=== PATIENT | male | born 1985 | race African-American/Black ===

== ENCOUNTER 2020-11-22 01:33 | Emergency (ER) | payer BC ==
[~2020-11-22] VITALS: Ht 170.2 cm; Wt 77.1 kg
--- NOTE | 2020-11-22 01:36 | NUR ---
pt bibself c/o left ear pain. Pt aaox4 breathing evenly and unlabored. pt states "i thinks my ear is clogged". Pt attached to monitor and pox. MD at bedside. Pt given blanket and call light within reach
[2020-11-22] MEDS ORDERED: DOCUSATE SODIUM LIQ 100 MG/10 ML UDC ONE (01:59)
[2020-11-22] MEDS ORDERED: NEOM10DR11 OT (02:20)
--- NOTE | 2020-11-22 02:24 | NUR ---
Patient discharged to home in stable condition. Written and verbal after care instructions given. Patient verbalizes understanding of instruction. Pt ambulatory with a steady gait
[2020-11-22 02:28] VITALS: BP 120/75
== END 2020-11-22 02:24 | disposition home or self-care (01) ==
LOC: ER 01:33
DX: H61.22 Impacted cerumen, left ear (principal)